=== PATIENT | female | born 1940 | race Caucasian/White ===

== ENCOUNTER → 2016-09-28 | Outpatient (CLI) | payer MEDICARE, BC ==
[~2016-09-28] MED LIST: ASPIRIN EC81 MG PO; CENTRUM SILVER1 EAC1 PO; CORDARONE,PACE200 MG PO; COUMADIN ** IA3 MG PO; COZAAR100 MG PO; DECADRON4 MG PO; FISH OIL 1,0001 EACH PO; LEVAQUIN750 MG PO; LOPRESSOR25 MG PO; NORCO 5-325 TA1 EACH PO; NORVASC5 MG PO; OCUVITE WITH L1 EACH PO; PEPCID COMPLET1 EACH PO; TUMS REGULAR ST1 TAB PO; TYLENOL PM EX-1 EACH PO; VERAPAMIL ER120 M1 PO; VITAMIN D1000 UNIT PO
== END | disposition disaster alternative care site (69) ==
LOC: GRAD 08:31
DX: C49.4 Malignant neoplasm of connective and soft tissue of abdomen (principal); D70.1 Agranulocytosis secondary to cancer chemotherapy; C78.7 Secondary malignant neoplasm of liver and intrahepatic bile duct; I95.1 Orthostatic hypotension; D64.81 Anemia due to antineoplastic chemotherapy; I70.90 Unspecified atherosclerosis; R91.8 Other nonspecific abnormal finding of lung field; Z90.5 Acquired absence of kidney
CPT/HCPCS: Q9967

== ENCOUNTER 2016-11-14 08:38 | Inpatient (IN) | payer MEDICARE, BC ==
[~2016-11-14] VITALS: Ht 160 cm; Wt 70.4 kg
--- NOTE | ~2016-11-14 | PUL ---
PATIENT'S NAME: RAFITA CHRISTENSEN [facility] AGE: 75 Y [address] ROOM: [place] [address] LOCATION: GPCU ADMIT DATE: 11/14/2016 Pulmonary DISCHARGE DATE: FAMILY PHYSICIAN: Sarah Beth Ray MD ATTENDING PHYSICIAN: Lisa LARSEN NAME OF PROCEDURE: Spriometry DATE OF PROCEDURE: November 14, 2016 TECH: CHARLIE Glasgow REASON FOR EXAM: Shortness of breath RESULTS: Spirometry demonstrates mild airflow obstruction with no significant change post bronchodilator. DYAN DELEON MD /[id number] dtt: 12/06/16 0824 , Dyan Deleon dtd: 11/17/16 0906
--- NOTE | ~2016-11-14 | CON ---
PATIENT'S NAME: RAFITA CHRISTENSEN [facility] AGE: 75 Y [address] ROOM: [facility] [place] [id number] LOCATION: GPCU ADMIT DATE: 11/14/2016 Consultation DISCHARGE DATE: FAMILY PHYSICIAN: Sarah Beth Ray MD ATTENDING PHYSICIAN: Lisa LARSEN DATE OF CONSULTATION: 11/14/2016 REFERRING PHYSICIAN: NEISHA DE LEÓN MD CARDIOLOGY CONSULT REASON FOR CARDIOLOGY CONSULT: Atrial fibrillation with rapid ventricular response. HISTORY OF PRESENT ILLNESS: This is a 75-year-old female, familiar to [facility]. She was last seen in clinic by Dr. De León on 08/18/2016 for history of paroxysmal atrial fibrillation and aortic insufficiency. She comes to the emergency department today after 2 different syncopal episode at Dr. Valladares' office. She is currently undergoing chemotherapy treatment for renal carcinoma. She denies any chest pain. 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 She had positive complaints of nausea and vomiting. As of this evaluation, the patient is currently in sinus rhythm after an amiodarone drip was started, and she "feels much better." PAST MEDICAL HISTORY: 1. History of coronary stenting in 2004. 2. History of breast cancer in 1984 with a mastectomy and reconstruction. 3. History of a total hysterectomy. 4. Tonsillectomy. 5. Left nephrectomy. 6. History of liver lesions. 7. Paroxysmal atrial fibrillation. 8. Hypertension. 9. Hypercholesterolemia. 10. Previous stenting to the RCA. 11. Diverticulitis. FAMILY HISTORY: The patient's mother had a history of heart disease, and her father had a history of stroke. SOCIAL HISTORY: PATIENT'S NAME: RAFITA CHRISTENSEN [facility] AGE: 75 Y [address] ROOM: [address] [address] LOCATION: GPCU ADMIT DATE: 11/14/2016 Consultation DISCHARGE DATE: FAMILY PHYSICIAN: Sarah Beth Ray MD ATTENDING PHYSICIAN: Lisa LARSEN The patient is a former cigarette smoker. She smoked 1 pack per day for a total of 10 years and quit smoking in 1986. She denies alcohol or illicit drug use. CURRENT MEDICATIONS: 1. Amiodarone IV drip per protocol. 2. Aspirin 81 mg p.o. daily. 3. Colace 100 mg p.o. twice daily. 4. Protonix 40 mg p.o. daily. MEDICATION ALLERGIES: 1. Sulfa causing rash and muscle pain. 2. Statins causing severe muscle aches. REVIEW OF SYSTEMS: Pertinent positive review of systems listed in the HPI. All other review of systems evaluated and negative. DIAGNOSTICS: CMS evaluation shows sodium of 141, potassium 4.1, BUN of 19, creatinine 1.0, glucose of 143, and a magnesium of 2.2. Cardiac enzyme evaluation shows a CPK of 17, CK-MB of 1.1, and troponin I of less than 0.04. PHYSICAL EXAMINATION: VITAL SIGNS: Temp 98.0, pulse 99, respirations 15, blood pressure 135/59, and O2 saturation 96% on room air. The patient weighs 70.8 kg. SKIN: [place], warm, and dry. EYES: Sclerae clear. No xanthelasmas. ENT: Oral mucosa is pink and moist. No jugular venous distention or carotid bruits. CHEST: Respirations are even and unlabored. LUNGS: Clear to auscultation. HEART: Regular rate and rhythm. Normal S1, S2. Does have the presence of a 2/6 diastolic murmur. ABDOMEN: Soft, nontender. MUSCULOSKELETAL: Gait is normal. EXTREMITIES: Peripheral pulses palpable. No clubbing, cyanosis, or edema. PSYCH: Alert and oriented. Mood and affect are appropriate. IMPRESSION AND PLAN: Per Dr. De León: 1. Atrial fibrillation with rapid ventricular response. She has a previous history of paroxysmal atrial fibrillation and is currently in sinus rhythm on her amiodarone drip. Plan will be to change her to the p.o. amiodarone in the a.m. PATIENT'S NAME: RAFITA CHRISTENSEN [facility] AGE: 75 Y [address] ROOM: [id number] [place], [place] [address] [facility] ADMIT DATE: 11/14/2016 Consultation DISCHARGE DATE: FAMILY PHYSICIAN: Sarah Beth Ray MD ATTENDING PHYSICIAN: Lisa LARSEN 2. No current long-term anticoagulation. She has discussed the risks and benefits of being off anticoagulation as well as being back on anticoagulation with Dr. De León. She was previously on long-term Coumadin but was stopped with the advisement of Dr. Valladares due to her chemotherapy regimen. We will await for Dr. Valladares' instructions for possibly restarting her Coumadin. Also discussed with the patient the possibility of a heparin drip, but her platelets are low at this time. We will continue to monitor closely. 3. History of aortic insufficiency. We will check an echocardiogram to fully evaluate ejection fraction as well as look for wall motion and valvular abnormalities. 4. Renal carcinoma. Currently undergoing chemotherapy with Dr. Valladares. We will continue to monitor, evaluate, and treat as appropriate. Thank you for allowing [facility] to interact in the care of this patient. Thank you for this consult. SASHA VELAZQUEZ APRN FOR MD MATTHIAS MERLOS/alexis /[id number] d: 11/14/16 2352 t: 12/08/16 1723, CONSULTATION REPORT
--- NOTE | ~2016-11-14 | DS ---
PATIENT'S NAME: RAFITA CHRISTENSEN [facility] AGE: 75 Y [address] ROOM: [address] [place], [place] [address] LOCATION: GPCU ADMIT DATE: 11/14/2016 Discharge Summary DISCHARGE DATE: 11/17/2016 FAMILY PHYSICIAN: Sarah Beth Ray MD ATTENDING PHYSICIAN: Lisa BOLES PRIMARY DIAGNOSES: 1. Paroxysmal atrial fibrillation with rapid ventricular response. 2. Anemia of chronic disease. 3. Thrombocytopenia. 4. Chronic kidney disease, stage 3. 5. Chronic diagnosis includes renal leiomyosarcoma. PRINCIPAL PROCEDURES: None was indicated in the patient. LABORATORY DATA: On admission, troponin less than 0.040. Lactic acid 1.9. WBC on admission was 7.2, prior to discharge was 12.0; H and H on admission was 10.0/32.6, prior to discharge was 9.0/29.2; platelet on admission was 57, prior to discharge was 34; creatinine on admission was 1.0, was stable throughout the hospital stay, prior to discharge was 1.1. Sodium as well was stable throughout the hospital stay, prior to discharge was 143; potassium was 4.1, prior to discharge was 4.0; bicarb was also stable throughout the hospital stay. Liver function tests were within normal limit throughout her hospital stay. Procalcitonin was 0.44. TSH was 4.21. Urine culture is pending. RADIOLOGY: Chest x-ray, patchy opacity in the right upper lung, which could reflect acute infiltrate and atelectasis, chronic changes of fibrosis and scarring also could contribute to observed appearance, apical pleural thickening and pleural parenchymal scarring at the right apex, elevation of the right hemidiaphragm, implanted vascular access catheter placed by left subclavian approach in place. Echocardiogram, ejection fraction 70%, left ventricle hyperdynamic, left atrium, mildly dilated left atrium, right atrium is mildly dilated, moderate aortic stenosis. HOSPITAL COURSE: For history of present illness, please take a look at the H and P, which was done by Dr. Boles. The patient was admitted to Progressive Care Unit, was managed for paroxysmal atrial fibrillation with rapid ventricular response, had a Cardiology consult for this. The patient was started on amiodarone drip by Cardiology; and by the next day of the hospital stay, amiodarone was discontinued, and the patient was switched to p.o. amiodarone after she flipped back into normal sinus rhythm. The patient was also followed up by oncologist for her left renal leiomyosarcoma. Her H and H were stable and throughout the hospital stay as well was relatively stable. Her amiodarone was titrated by the senior compensation analyst; and the 2nd night of her PATIENT'S NAME: RAFITA CHRISTENSEN [facility] AGE: 75 Y [address] ROOM: [address] [address] LOCATION: GPCU ADMIT DATE: 11/14/2016 Discharge Summary DISCHARGE DATE: 11/17/2016 FAMILY PHYSICIAN: Sarah Beth Ray MD ATTENDING PHYSICIAN: Lisa BOLES hospital stay, she temporarily flipped back into AFib, but for a brief period of time like for a few seconds, and she flipped right back into normal sinus rhythm. The big question was when to commence anticoagulation given the patient's thrombocytopenia; so, this was deferred to the oncologist by the by the senior compensation analyst as to when to give cardiac clearance for commencement of anticoagulation; however, the patient did recommend that whenever it is going to be started that she would want to be on Eliquis. On the day of discharge, it was observed that her white cell count had bumped up to 12,000; however, she was afebrile, partial sepsis workup, which was done, which included procalcitonin revealed 0.44, and UA which was done as well revealed leukocytes of 500 and wbc of full field, bacteria was negative. However, given the fact that the patient is immunosuppressed with a chemo as well as a cancer, I felt the patient should be empirically treated for urinary tract infection even though she was asymptomatic. Plan also was to follow up on the urine culture, which will ultimately confirm whether the patient has urinary tract infection or not; so, on the day of discharge, the patient's vital signs were stable and she was discharged home. DISCHARGE INSTRUCTIONS: Include she is to follow up with her regular family doctor in the next 1 week who is to follow up on the results of the urine culture and decide on whether the antibiotics prescribed was appropriate or not if it turns out to be positive. MEDICATIONS ON DISCHARGE: Includes: 1. Aspirin 81 mg p.o. q.h.s. 2. Amiodarone 400 mg p.o. 3 times daily #1 and then from November 18 then amiodarone 200 mg p.o. twice daily. 3. Vitamin D 1000 units q.h.s. 4. Centrum 1 tablet p.o. daily. 5. Ocuvite 1 tablet p.o. daily. 6. Colace [id number]. 7. Metoprolol 25 mg p.o. twice daily, new medication. 8. Fish oil 1 g p.o. daily. 9. Tylenol PM Extra Strength 1 tablet p.o. q.h.s. p.r.n. 10. [place] 1 tablet p.o. every 4 hours p.r.n. 11. Pepcid 1 tablet p.o. 4 times daily and then antibiotics. 12. The patient was sent home on include Augmentin 500 mg b.i.d., which was called into pharmacy to replace the initial Levaquin 750 mg, which was on prescription prior to discharge, and Levaquin was discontinued because of interaction with amiodarone. VAZQUEZ RIVERA MD PATIENT'S NAME: RAFITA CHRISTENSEN [facility] AGE: 75 Y [address] ROOM: [place] [address] LOCATION: [facility] ADMIT DATE: 11/14/2016 Discharge Summary DISCHARGE DATE: 11/17/2016 FAMILY PHYSICIAN: Sarah Beth Ray MD ATTENDING PHYSICIAN: Lisa BOLES /[id number] d: 11/18/168 t: 11/27/16 1610, DISCHARGE SUMMARY
--- NOTE | ~2016-11-14 | CON ---
PATIENT'S NAME: ELSIE CHRISTINE [facility] AGE: 75 Y [address] ROOM: [address] [place], [place] [address] LOCATION: GPCU ADMIT DATE: 11/14/2016 Consultation DISCHARGE DATE: FAMILY PHYSICIAN: Sarah Beth Ray MD ATTENDING PHYSICIAN: Lisa BOLES DATE OF CONSULTATION: 11/15/2016 REFERRING PHYSICIAN: NEISHA DE LEÓN MD REQUESTING PHYSICIAN: Dr. Doyle dictating a consult to Dr. Boles. HISTORY OF PRESENT ILLNESS: Elsie Christine is a 75-year-old woman with dyspnea associated with atrial fibrillation with a rapid ventricular response. 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 The patient is currently on day 13 of her 6th cycle of gemcitabine and docetaxel for her leiomyosarcoma. She was last seen at [facility] on day 8 (11/09/2016). The progress note from that visit is appended in the physician's report and will not be repeated. At that time, the patient was doing well. She lived in [place] with Mr. Christine. She could drive, shop, exercise in the turtle pool, and generally take care of herself. On day 8, the patient received docetaxel and gemcitabine. On day 10, the patient developed fatigue and orthostatic disequilibrium. She was already scheduled for hydration on day 11 and day 12 which was done at the [facility]. On day 13 of this cycle, she reported to [facility] for scheduled laboratory work. She walked into the office, but was quite fatigued and swooned. She was placed in a wheelchair and continued to swoon. Her vital signs were taken and she was transferred by ambulance to [facility]. The patient was evaluated by Dr. Beltran in the emergency room. The white count was 7200, the hemoglobin was 10, the MCV was 130, and the platelets were 57,000. The patient had 78 segs and 11 bands on the peripheral smear. The CMS was unremarkable except for an albumin of 3.1 G/dL. A one-view chest x- ray revealed a left subclavian implanted vascular access device as well as patchy opacity in the upper lobe of the right lung and pleural thickening at the apex of the right lung. The lactate was 1.9. The free T4 was 1.3. The INR was 1. CK-MB and troponin were within normal limits. The 12-lead EKG revealed atrial fibrillation with a rapid ventricular response of [address] Beltran administered 5 mg of diltiazem which was associated with a fall in PATIENT'S NAME: ELSIE CHRISTINE [facility] AGE: 75 Y [address] ROOM: [place] [address] [facility] ADMIT DATE: 11/14/2016 Consultation DISCHARGE DATE: FAMILY PHYSICIAN: Sarah Beth Ray MD ATTENDING PHYSICIAN: Lisa BOLES the heart rate from 170 to 130 and improvement in blood pressure. Dr. 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 The patient makes the point she has experienced some intermittent chest pressure substernally that "comes and goes." She may be nauseated with this, though it has not been associated with dyspnea. On one occasion, she vomited. The patient states she has had palpitations before and occasionally gets dizzy with this. Two weeks prior to her admission, she had another syncopal episode, but 2 units of packed red blood cells were administered and her symptoms improved significantly. She experienced a mild headache this morning and paresthesias to the wrist which are intermittent and resolved following her chemotherapy were noted. Ms. 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 This was first detected by serendipity when she reported to Dr. De León for evaluation of dyspnea on exertion in late 2015. Dr. De León obtained an imaging study which was suspicious for cancer on 04/10/2016. This was a CT with PE protocol. Vascular calcifications were present. There was a 7-mm noncalcified nodule in the left lung base, a 5-mm nodule in the anterior mid left lung, and a 4-mm nodule in the right lung base. There was a 4.4 cm left renal mass invading the left renal vein. The left renal vein was partially occluded. An ill-defined lesion was present within the right lobe of the liver measuring up to 1.2 cm. The patient was referred to Dr. Paul Thompson, who recommended and performed, on 04/28/2016, a left radical nephrectomy complicated secondary to renal vein extension. Dr. Thompson removed all visible tumor. The pathologists, after consultation with their colleagues at the [facility], concluded the patient had a 6.5 cm high-grade renal leiomyosarcoma. The renal vein margin was positive. Tumor infiltrated the renal sinus and perinephric soft tissue. No tumor was seen in the five lymph nodes surrounding that. The patient was seen in consultation by Dr. Valladares and Dr. Mili Sanchez at the [facility]. On 06/01/2016, the patient was placed on olaratumab and doxorubicin. On 07/13/2016, gemcitabine and docetaxel were substituted. On 08/17/2016, a CAT scan showed the pulmonary nodules were stable and the lesion in the right lobe of the liver was smaller so her docetaxel and gemcitabine were continued. The patient is currently scheduled for restaging CAT scans on 11/30/2016 and for revisit with Dr. Sanchez on 12/05/2016. The patient makes a point she has tolerated her therapy reasonably well except for fatigue. ACTIVE MEDICAL PROBLEMS CHRONIC AND DIAGNOSED: 1. Atherosclerotic heart disease leading to coronary stenting in 2004. 2. Paroxysmal atrial fibrillation. 3. Essential arterial hypertension. 4. Hypercholesterolemia. 5. Colonic diverticulosis complicated by diverticulitis. PATIENT'S NAME: ELSIE CHRISTINE [facility] AGE: 75 Y [address] ROOM: [address] [address] [facility] ADMIT DATE: 11/14/2016 Consultation DISCHARGE DATE: FAMILY PHYSICIAN: Sarah Beth Ray MD ATTENDING PHYSICIAN: Lisa BOLES ACUTE MEDICAL ILLNESSES (RESOLVED), PAST SURGERIES, INJURIES: 1. In 1984 - breast cancer treated with mastectomy and reconstruction. 2. Tonsillectomy. 3. Total abdominal hysterectomy. 4. Left nephrectomy. 5. Diverticulitis. MEDICATIONS: Upon admission: 1. Acetaminophen and diphenhydramine p.r.n. insomnia. 2. ASA 81 mg daily. 3. Cholecalciferol 1000 units p.o. at bedtime. 4. Famotidine 1 tablet p.o. q.i.d. 5. Hydrocodone and acetaminophen. 6. Multivitamins. 7. [place]-3 fatty acids. 8. Vitamin A, C, and E. ADVERSE REACTIONS TO MEDICATIONS, TRANSFUSIONS, ALLERGIES: 1. The patient develops myalgias from statins. 2. The patient has needed packed red blood cell transfusions in July and October of 2016. 3. Sulfa leads to rash and muscle pain. TOBACCO: One pack per day for 10 years, abstained since 1986. ALCOHOL: None. REVIEW OF SYMPTOMS: The patient experienced some myalgias with her docetaxel. PHYSICAL EXAMINATION: VITAL SIGNS: Pulse 84 and regular, blood pressure 160/65, respiratory rate 18, temperature 97.5, and SpO2 of 94% on room air. Height 63 inches, weight 70.8 kg (156 pounds). BMI 27.6 kg/M2. GENERAL: A well-developed, slightly overweight, 75-year-old, female in no acute distress. HEENT: Unremarkable. LYMPH NODES: None palpable. NECK: Without JVD. CHEST: Clear. CARDIOVASCULAR: Regular rhythm with a grade 3/6 systolic ejection murmur PATIENT'S NAME: ELSIE CHRISTINE [facility] AGE: 75 Y [address] ROOM: [place] [address] [facility] ADMIT DATE: 11/14/2016 Consultation DISCHARGE DATE: FAMILY PHYSICIAN: Sarah Beth Ray MD ATTENDING PHYSICIAN: Lisa BOLES radiating to the carotid arteries. BREASTS: Not examined. ABDOMEN: No masses, tenderness, or organomegaly. A well-healed vertical abdominal scar from the umbilicus to the symphysis pubis. CHEST WALL: Left implanted vascular access device in place. EXTREMITIES: Pulses 2+ in the upper extremities, 1 +in the lower extremities. NEUROLOGIC: Grossly intact. IMPRESSION: 1. Paroxysmal atrial fibrillation in a patient with atherosclerotic heart disease. Other than her atherosclerotic heart disease, her doxorubicin, fluid retention from docetaxel, and aortic stenosis (by physical exam) might have predisposed her to this episode. 2. There are no antidotes specific for the chemotherapy that need to be administered at this time. Following stabilization of her cardiac situation, the patient needs to undergo restaging for her high-grade leiomyosarcoma. RECOMMEND: Diagnostic: 1. Proceed with restaging CAT scans of the chest, abdomen, and pelvis on 11/30/2016 presuming she continues to respond to therapy for her atrial fibrillation. 2. Cardiac diagnostic studies per Cardiology. TREATMENT: 1. No antineoplastic therapy at this point. She has completed her 6th cycle of docetaxel and gemcitabine. 2. Other medications per Cardiology and the Hospitalist Service. PATIENT EDUCATION: 1. I made the point that her chemotherapy may have somewhat increased her predisposition to her atrial fibrillation, but was not leach. 2. Recommended she continue with her current plans to undergo restaging x- rays later this month and then see Dr. Sanchez and Dr. Valladares for their impression and recommendations following restaging. MD LILLIAN RODRIGUEZB/modl PATIENT'S NAME: ELSIE CHRISTINE [facility] AGE: 75 Y [address] ROOM: [place] [address] [facility] ADMIT DATE: 11/14/2016 Consultation DISCHARGE DATE: FAMILY PHYSICIAN: Sarah Beth Ray MD ATTENDING PHYSICIAN: Lisa BOLES /[id number] CC: MD Sarah Beth Huertas MD d: 11/15/16 1844 t: 11/18/16 1226, CONSULTATION REPORT
--- NOTE | ~2016-11-14 | ECHO ---
Transthoracic Echocardiography Report (TTE) Demographics Patient Name RAFITA CHRISTENSEN Date of Study 11/14/2016 Patient Number [id number] Visit Number [id number] Date of 1940 Room Number G6310 Gender Female Number Age 75 year(s) Referring Ramana Gonzalez Medical Records Director Jo Hairston, Physician RT,RVT,RDCS Physician Interpreting Caitlyn Lau Jumpbasting Armhole Baster Physician Supervising Ordering Ramana Gonzalez MD/MLP Physician Nurse Stress Show Horse Driver Conclusions Summary The estimated left ventricular ejection fraction is 70%. Left ventricle is hyperdynamic. The left atrium is mildly dilated by LA volume index measurement. Mild concentric left ventricular hypertrophy. The right atrium is mildly dilated. There is moderate aortic stenosis by the Continuity Equation. The peak velocity is 2.6 m/s, the mean gradient is 16 mmHg, and the valve area based on the continuity equation is 1.1 cm2, stroke volume index is 51 ml/m2. Procedure Type of Study TTE procedure:2D Echocardiogram, M-Mode, Doppler , Color Doppler. Procedure Date Date: 11/14/2016 Start: 03:03 PM Study Location: Inpatient Portable Technical Quality: Adequate visualization Indications:Arrhythmia. Additional Indications:Chemo patient. Appropriate Use Criteria: 9 Patient Status: Routine HR: 99 bpm BP: 135/59 mmHg M-Mode/2D Measurements LV Diastolic Dimension: 3.47 cm LV Systolic Dimension: 2.44 cm LV Septum Diastolic: 1.67 cm LV PW Diastolic: 1.33 cm AO Root Dimension: 2.6 cm Cardiac Output: 5.07 l/min AV Cusp Separation: 1 cm RV Diastolic Dimension: 2.78 cm LA volume: 50 ml MV EPSS: 0.7 cm LVOT: 2 cm RV Base: 4.4 cm LVOT VTI: 16.3 cm RV Mid: 3.7 cm LV Stroke volume: 51.18 ml TAPSE: 8.9 cm Doppler Measurements AV Peak Velocity: 2.61 m/s MV Peak E-Wave: 0.86 m/s AV Peak Gradient: 27.25 mmHg MV Peak A-Wave: 1 m/s AV Mean Gradient: 16 mmHg MV E/A Ratio: 0.87 LVOT Peak Velocity: 0.81 m/s MV P1/2t: 44 msec AV P1/2t: 227 msec TR Gradient:20.79 mmHg PV Peak Velocity: 1.28 m/s Estimated RAP:10 mmHg PV Peak Gradient: 6.55 mmHg Estimated RVSP: 31 mmHg Estimated PASP: 30.79 mmHg E' Septal Velocity: 0.07 m/s A' Septal Velocity: 0.07 m/s MV E/E' Ratio: 12.7 Findings Left Ventricle Mild concentric left ventricular hypertrophy. Right Ventricle Normal right ventricular size and function. Left Atrium The left atrium is mildly dilated by LA volume index measurement. Right Atrium The right atrium is mildly dilated. Mitral Valve Normal mitral valve structure and function. Aortic Valve There is moderate aortic stenosis by the Continuity Equation. The peak velocity is 2.6 m/s, the mean gradient is 16 mmHg, and the valve area based on the continuity equation is 1.1 cm2, stroke volume index is 51 ml/m2. There is mild aortic regurgitation by color Doppler. Tricuspid Valve Mild tricuspid regurgitation by color Doppler. The estimated pulmonary pressure (RVSP) is 32 mmHg. Pericardial Effusion No evidence of pericardial effusion. Miscellaneous Visualized portions of the aortic root and ascending aorta appear normal in size. Pleural Effusion No evidence of pleural effusion. Contractility Score LV regional wall motion:(0-Non visualized 1-Normal 2-Hypokinesis 3-Akinesis 4-Dyskinesis 5-Aneurysm) Signature dtt: NEISHA DE LEÓN dtd: 11/14/16 1503 Physician Self Edit
--- NOTE | ~2016-11-14 | ER ---
PATIENT'S NAME: RAFITA CHRISTENSEN [facility] AGE: 75 Y [address] ROOM: [place] [address] LOCATION: GPCU ADMIT DATE: 11/14/2016 ER/Outpatient Report DISCHARGE DATE: FAMILY PHYSICIAN: Sarah Beth Ray MD ATTENDING PHYSICIAN: Lisa BOLES CHIEF COMPLAINT: Weakness and fast heart rate. HISTORY OF PRESENT ILLNESS: The patient was at her oncologist's office today and was found to have a very fast heart rate and possibly low blood pressure, and was not feeling well. She was brought in by ambulance. The patient has a history of atrial fibrillation. It is unclear if it is constant or paroxysmal. She states that she has been feeling poorly with her chemotherapy. Today, she felt particularly bad. The exact time of onset is unclear. It seems as though may be there was a significant change today. She is not on any anticoagulation. 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 She has known spots in the liver and lung. She has had a partial mastectomy and she has also had a nephrectomy. PAST MEDICAL HISTORY: Documented in the record and reviewed by me. SOCIAL HISTORY: Documented in the record and reviewed by me. MEDICATIONS: Documented in the record and reviewed by me. ALLERGIES: DOCUMENTED IN THE RECORD AND REVIEWED BY ME. REVIEW OF SYSTEMS: All systems were reviewed and negative except as noted in the HPI. PHYSICAL EXAMINATION: VITAL SIGNS: Upon arrival, blood pressure 122/65, pulse is 158, respiratory rate is 18, temperature 97.8, and SpO2 is 98% on room air. Pain is 0/10. GENERAL: An age appropriate female, tired appearance. No obvious pain or distress. NEUROLOGIC: The patient is awake and alert. She moves all extremities to command. GCS is 15. HEENT: Normocephalic and atraumatic. Eyes are PERRL. Oropharynx is clear. NECK: Supple. Trachea is midline. PATIENT'S NAME: RAFITA CHRISTENSEN [facility] AGE: 75 Y [address] ROOM: [place] [address] LOCATION: GPCU ADMIT DATE: 11/14/2016 ER/Outpatient Report DISCHARGE DATE: FAMILY PHYSICIAN: Sarah Beth Ray MD ATTENDING PHYSICIAN: SUZIE,Dagmawe CHEST: Heart is tachycardic and irregular. No obvious murmurs. LUNGS: Clear to auscultation bilaterally with no rhonchi, wheezes, or rales. ABDOMEN: Soft, nontender, and nondistended. No rebound or guarding. SPINE: Back is normal to inspection and palpation. EXTREMITIES: Warm and well perfused. No erythema or swelling. No deformities. SKIN: Warm, dry, and intact. LABORATORY DATA AND IMAGING STUDIES: Labs and X-rays: Chest x-ray, unremarkable per my read. EKG reveals atrial fibrillation with RVR, rate of approximately 170 beats per minute. Prior EKG is normal sinus rhythm. EMS EKG consistent. Labs: CBC; white count 7.2, hemoglobin 10.0, and platelets of 57,000. INR is 1. Free T4 is 1.3. Lactate is 1.9. TSH is 4.21. CMS without electrolyte abnormality. Creatinine is 1.0. GFR is 54, consistent with prior studies. No significant LFT abnormalities. CK-MB and troponin are within appropriate limits. IMPRESSION: Atrial fibrillation with rapid ventricular response and hemodynamic instability. EMERGENCY DEPARTMENT COURSE: The patient was seen and evaluated as above. She was found to be in atrial fibrillation with rapid ventricular response. Initially blood pressures were within the normal range. They ranged widely with no significant change in clinical status otherwise. Several times blood pressure was in the mid 70s systolic. The patient was given a 5 mg diltiazem bolus in addition to 2 L of fluid. This helped stabilize her blood pressure significantly and brought her heart rate down some to the 130 range from the [address] Brady, repairer controller tester, the patient's primary repairer controller tester as well as Dr. Boles, hospitalist, both evaluated the patient in the emergency department. She was deemed appropriate for floor admission to PCU. She was given diltiazem bolus and amiodarone was ordered and will be initiated on the floor. She has no evidence of alternative infection. At this time, I do not feel that she is unstable enough to require cardioversion in the emergency department. Her blood pressure stabilized in the 110s systolic in the middle of the second liter. She remained otherwise asymptomatic while in the emergency department. She will be admitted without further issue to the PCU. SUSHIL BLEVINS MD PATIENT'S NAME: RAFITA CHRISTENSEN [facility] AGE: 75 Y [address] ROOM: [id number] [place] [id number] LOCATION: [facility] ADMIT DATE: 11/14/2016 ER/Outpatient Report DISCHARGE DATE: FAMILY PHYSICIAN: Sarah Beth Ray MD ATTENDING PHYSICIAN: Lisa BOLES /[id number] d: 11/14/[id number] t: 11/16/16 1002, OUTPATIENT REPORT
--- NOTE | ~2016-11-14 | HP ---
PATIENT'S NAME: RAFITA CHRISTENSEN [facility] AGE: 75 Y [address] ROOM: [place] [address] [facility] ADMIT DATE: 11/14/2016 History & Physical DISCHARGE DATE: FAMILY PHYSICIAN: Sarah Beth Ray MD ATTENDING PHYSICIAN: Lisa LARSEN DATE OF SERVICE: CHIEF COMPLAINT: Atrial fibrillation with RVR. HISTORY OF PRESENT ILLNESS: The patient is a 75-year-old female with past medical history of CAD status post PCI, paroxysmal atrial fibrillation, breast cancer, status post mastectomy and radiation, and recent history of leiomyosarcoma of the left kidney, stage 4, with mets to liver who presents here from her Heme-Onc office with atrial fibrillation with RVR. The patient reports that she was not feeling well today. She reports that her blood pressure was low when she took it at home. She was seen by her Heme-Onc doctor, Dr. Valladares. At the clinic, she was noted to have nausea, vomiting, labile blood pressure ranging systolic blood pressure from 130 to systolic blood pressure in the 70s and tachycardic. The patient also reports of one episode of nausea and vomiting, and episode of left-sided pressure-like chest pain which she rates at 6/10, nonradiating and lasts 2 to 3 minutes. She reports that chest pain improved when her blood pressure got better. The patient denies fever, chills, abdominal pain, diarrhea, shortness of breath, dizziness, change in vision, or diarrhea. Of note, the patient has a history of breast cancer status post radiation and has history of leiomyosarcoma of the left kidney, stage 4, with mets to the liver. The patient has had a left radical nephrectomy in April 2016 and was initially started on Adriamycin and olaratumab, however, she could not tolerate and was currently on Gemzar and Taxotere. PAST MEDICAL HISTORY: 1. Breast cancer. 2. Coronary artery disease status post PCI. 3. Paroxysmal atrial fibrillation. 4. Leiomyosarcoma of the left kidney. PAST SURGICAL HISTORY: 1. Hysterectomy. 2. Left radical nephrectomy. 3. Mastectomy. FAMILY HISTORY: PATIENT'S NAME: RAFITA CHRISTENSEN [facility] AGE: 75 Y [address] ROOM: [place] [address] LOCATION: GPCU ADMIT DATE: 11/14/2016 History & Physical DISCHARGE DATE: FAMILY PHYSICIAN: Sarah Beth Ray MD ATTENDING PHYSICIAN: Lisa LARSEN Mother has a history of atrial fibrillation. 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 ALLERGIES: SULFUR. MEDICATION: Please see MAR. REVIEW OF SYSTEMS: All systems have been reviewed and are negative except for what is mentioned in the HPI. PHYSICAL EXAMINATION: VITAL SIGNS: Afebrile. Blood pressure 116/58, saturating 97% on room air, and heart rate of 151. GENERAL: The patient is lying on bed comfortably in no acute distress. HEENT: Head; normocephalic and atraumatic. Eyes; extraocular muscle intact. Sclerae nonicteric. Nose; no nasal discharge. Ears; no ear discharge. NECK: Supple. CHEST: Clear to auscultation bilaterally. HEART: Irregularly irregular. Tachycardic. No murmurs, rubs, or gallops appreciated. ABDOMEN: Soft, nontender, and nondistended. Bowel sounds present. EXTREMITIES: No edema. MUSCULOSKELETAL: Range of motion intact. No obvious joint effusion. NEUROLOGIC: Alert and oriented x3. Motor and sensory grossly intact. SKIN: Warm to touch. No lesion seen. LABORATORY DATA: White blood cell count 7.2, platelets of 57,000, and hemoglobin of 10. TSH of 4.21, free T4 of 1.3. Troponin 0.040. Sodium 141, potassium 4.1, BUN 19, and creatinine 1. EKG shows atrial fibrillation with RVR. ASSESSMENT AND PLAN: The patient is a 75-year-old female with past medical history of breast cancer status post mastectomy, radiation, leiomyosarcoma of the left kidney on Gemzar and Taxotere, history of coronary artery disease and paroxysmal atrial fibrillation, who presents here from her oncologist's office with atrial fibrillation with rapid ventricular response, labile blood pressure, and dehydration. 1. Atrial fibrillation with rapid ventricular response. The patient initially was found to be in atrial fibrillation with rapid ventricular PATIENT'S NAME: RAFITA CHRISTENSEN [facility] AGE: 75 Y [address] ROOM: [place] [address] [facility] ADMIT DATE: 11/14/2016 History & Physical DISCHARGE DATE: FAMILY PHYSICIAN: Sarah Beth Ray MD ATTENDING PHYSICIAN: Lisa LARSEN response and the heart rates up to 170s. The patient also was noted to have labile blood pressure. The patient was started on low-dose Cardizem drip, however, patient did not tolerate blood pressure. We will start the patient on amiodarone drip. Also patient was given 0.25 mg of digoxin. We will acquire echocardiogram to further evaluate structural disease. The patient has elevated CHADS-VASc score. However, patient voiced that she does not want to be on a blood thinner today. A long discussion was made about risks and benefits of anticoagulation. The patient understands that the risk of stroke without anticoagulation including debilitating stroke. The patient reports that she understands the risk of not being on anticoagulation. Family was present during this discussion. Also Dr. Brady was present during this discussion. We will continue home medication of aspirin 81 mg. We will monitor patient in the PCU with telemonitor with amiodarone drip and if the patient continues to have uncontrolled rates, we will consider adding schedule digoxin. If the blood pressure is better with IV fluids, we will also consider a beta bobby. Cardiology on board. 1. Dehydration. The patient has received a 2 L bolus in the ED with improvement of blood pressure. We will start patient on 100 mL an hour of normal saline. 2. Chest pain. Initial troponin is negative. Etiology most likely secondary to atrial fibrillation with rapid ventricular response. Initial troponin x1 negative. Cardiology on board. The patient currently is chest pain- free. We will treat underlying etiology and we will acquire echocardiogram to further investigate wall-motion. 3. Thrombocytopenia, etiology secondary to chemotherapy. Platelets of 57,000 currently. No signs of bleeding. Hemoglobin of 10. We will monitor platelets with CBC daily. Discussed the case with Dr. Doyle our oncologist doctor. 4. 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 5. History of coronary artery disease, status post percutaneous coronary intervention, continue aspirin. 6. Subclinical hypothyroidism. TSH of 4.21 with normal free T4. To follow up as an outpatient with repeated TSH. I have personally reviewed the patient's medical record including but not limited to blood work and radiology report. Total time spent with patient is greater than 60 minutes, more than 50% of the time is spent in direct patient care and patient consultation. Case was reviewed with the patient, nursing staff, and family members. All question were answered to the patient's satisfaction. Case was reviewed with Cardiology, Dr. Brady and Heme-Onc with . PATIENT'S NAME: RAFITA CHRISTENSEN [facility] AGE: 75 Y [address] ROOM: [place] [address] LOCATION: [facility] ADMIT DATE: 11/14/2016 History & Physical DISCHARGE DATE: FAMILY PHYSICIAN: Sarah Beth Ray MD ATTENDING PHYSICIAN: Lisa LARSEN CODE STATUS: The patient is a full code on admission. SUZIE PEDRAZA MD AD/modl /[id number] D: [id number] T: 543 HISTORY & PHYSICAL
[~2016-11-14 08:38] MED LIST changes: -CENTRUM SILVER1 EAC1 PO; -CORDARONE,PACE200 MG PO; -DECADRON4 MG PO; -LEVAQUIN750 MG PO; -LOPRESSOR25 MG PO; -OCUVITE WITH L1 EACH PO; -PEPCID COMPLET1 EACH PO
[2016-11-14 09:02] LABS: HEMATOCRIT 32.6 % (33.0-46.0); MCH 31.6 pg (27.0-34.0); MCHC 30.7 gm/dL (32.0-36.5); MCV 103.2 fl (83.0-98.0); MPV 9.7 fl (9.4-12.4); RBC 3.16 M/uL (3.50-5.50); RDW-CV 18.3 % (11.9-14.6); WBC 7.2 K/uL (4.0-11.0)
[2016-11-14 09:03] LABS: PLATELET COUNT 57 K/uL (150-450)
[2016-11-14 09:14] LABS: INR - (THERAPEUTIC) 1.02 (0.92-1.07); PROTIME 10.7 SECONDS (9.8-11.4); PTT 31 SECONDS (25-32)
[2016-11-14 09:22] LABS: ALBUMIN 3.1 gm/dL (3.5-5.0); ALK PHOS 88 IU/L (33-138); ALT 57 IU/L (12-78); ANION GAP 13.1 (10.0-19.0); AST 25 IU/L (10-40); BLOOD UREA NITROGEN 19 mg/dL (6-24); CALCIUM 9.2 mg/dL (8.5-10.5); CHLORIDE 105 mMol/L (96-110); CO2 27 mMol/L (22-32); CPK 17 IU/L (21-215); ESTIMATED GFR (MDRD EQUATION) 54; MAGNESIUM 2.2 mg/dL (1.8-2.6); POTASSIUM 4.1 mMol/L (3.7-5.1); SODIUM 141 mMol/L (135-145); TOTAL BILIRUBIN 0.7 mg/dL (0.0-1.5); TOTAL PROTEIN 5.9 g/dL (6.0-8.4)
[2016-11-14 10:34] LABS: ABSOLUTE NEUTROPHIL CT (ANC) 6.6 K/uL (1.8-7.8); BANDED NEUTROPHIL # 0.8 K/uL (0.0-0.1); BANDED NEUTROPHILS % 11 %; LYMPHOCYTE # 0.4 K/uL (0.8-4.0); LYMPHOCYTE % 6 %; MONOCYTE # 0.1 K/uL (0.0-1.0); SEGMENTED NEUTROPHIL # 5.8 K/uL (1.8-7.8); SEGMENTED NEUTROPHIL % 78 %
--- NOTE | 2016-11-14 12:11 | NUR ---
PT is 75 y/o female admit for afib w rvr for hospitalist. Allergy to sulfa and statins. Red and yellow bracelets on. Limb alert on R)arm-mastectomy. Hx cardiac stent,afib,htn,hypercholest,CAD,diverticulitis,ulcerative colitis, renal and breast cancer. PT alert and oriented x3. CAme through ED this am. States she was nauseated earlier and vomited x1. Resides at home with her . Just had last chemo tx recently.
[2016-11-14] MEDS ORDERED: CENTRUM SILVER1 EAC1 PO (13:12)
[2016-11-14] MEDS ORDERED: PEPCID COMPLET1 EACH PO (13:12)
[2016-11-14] MEDS ORDERED: OCUVITE WITH L1 EACH PO (13:13)
[2016-11-14] MEDS ORDERED: DECADRON4 MG PO (13:14)
--- NOTE | 2016-11-14 16:23 | NUR ---
Significant Event: A/O. BPs 100s-130s RA. Converted to SR with amiodarone gtt. Denies pain - states she does have some chest "heaviness" with her rates up but states that the heaviness is not similar to the pain she had when her stent was placed. Port to L) chest with good blood return. Family at bedside. Echo completed this afternoon, results pending. Follow up: continue with plan of care.
[2016-11-15 02:56] LABS: ALBUMIN 2.7 gm/dL (3.5-5.0); ANION GAP 11.3 (10.0-19.0); CALCIUM 9.1 mg/dL (8.5-10.5); POTASSIUM 4.3 mMol/L (3.7-5.1); TOTAL PROTEIN 5.2 g/dL (6.0-8.4)
[2016-11-15 03:06] LABS: TOTAL BILIRUBIN 0.3 mg/dL (0.0-1.5)
[2016-11-15 03:08] LABS: HEMATOCRIT 26.2 % (33.0-46.0); HEMOGLOBIN 8.2 g/dL (10.0-15.0); MCH 32.7 pg (27.0-34.0); MCHC 31.3 gm/dL (32.0-36.5); MCV 104.4 fl (83.0-98.0); MPV 11.7 fl (9.4-12.4); RBC 2.51 M/uL (3.50-5.50); RDW-CV 18.4 % (11.9-14.6); WBC 5.9 K/uL (4.0-11.0)
[2016-11-15 03:19] LABS: PLATELET COUNT 41 K/uL (150-450)
--- NOTE | 2016-11-15 04:45 | NUR ---
Significant events: Pt A/Ox3. VSS. No complaints of pain or shortness of breath this shift. Up SBA. Amiodarone gtt continues at 0.5. Continues in sinus rhythm. L) chest port in place, good bood return. Slept well this shift.
[2016-11-15 05:43] LABS: ABSOLUTE NEUTROPHIL CT (ANC) 4.7 K/uL (1.8-7.8); BANDED NEUTROPHIL # 0.7 K/uL (0.0-0.1); BANDED NEUTROPHILS % 12 %; LYMPHOCYTE # 1.1 K/uL (0.8-4.0); LYMPHOCYTE % 18 %; MONOCYTE # 0.1 K/uL (0.0-1.0); SEGMENTED NEUTROPHIL % 68 %
--- NOTE | 2016-11-15 16:36 | NUR ---
A&O. HTN 140'S150'S. HR 70'S-80'S. RA. AFEBRILE. LS CLEAR. BS ACTIVE. VD PER BR. NO BM TODAY. AMIO GTT OFF AT 1230. PO AMIO. HGB DOWN 2 PTS. L CX PORT SL. FAMILY AT BEDSIDE, PLAN HOME TOMORROW
[2016-11-16 04:01] LABS: ANION GAP 11.3 (10.0-19.0); CALCIUM 9.4 mg/dL (8.5-10.5); CREATININE 1.1 mg/dL (0.5-1.1); POTASSIUM 4.3 mMol/L (3.7-5.1); TOTAL PROTEIN 5.7 g/dL (6.0-8.4)
[2016-11-16 04:08] LABS: TOTAL BILIRUBIN 0.6 mg/dL (0.0-1.5)
--- NOTE | 2016-11-16 04:35 | NUR ---
Significant events: Pt A/Ox3. VSS. No complaints of pain. Up SBA. On RA. Pt did flip into afib at 2315 and converted back to sinus at 2325. PO amiodarone started. L) chest port in place. Slept well this shift. Possible DC today.
[2016-11-16 05:09] LABS: HEMATOCRIT 29.9 % (33.0-46.0); HEMOGLOBIN 9.3 g/dL (10.0-15.0); MCH 32.4 pg (27.0-34.0); MCHC 31.1 gm/dL (32.0-36.5); MCV 104.2 fl (83.0-98.0); MPV 11.5 fl (9.4-12.4); RBC 2.87 M/uL (3.50-5.50); RDW-CV 18.4 % (11.9-14.6); WBC 9.1 K/uL (4.0-11.0)
[2016-11-16 05:12] LABS: PLATELET COUNT 33 K/uL (150-450)
[2016-11-16 05:45] LABS: BANDED NEUTROPHIL # 1.2 K/uL (0.0-0.1); BANDED NEUTROPHILS % 13 %; LYMPHOCYTE # 1.5 K/uL (0.8-4.0); LYMPHOCYTE % 16 %; MONOCYTE # 0.6 K/uL (0.0-1.0); SEGMENTED NEUTROPHIL # 4.8 K/uL (1.8-7.8); SEGMENTED NEUTROPHIL % 53 %
--- NOTE | 2016-11-16 15:00 | NUR ---
Introduced self and role of care management to patient and several friends. Patient lives in [place] with her spouse. Patient plans home when ready for discharge. Denies discharge needs at this time. Will follow.
--- NOTE | 2016-11-16 16:53 | NUR ---
Significant Event: PT A&O x3. VSS, on room air. PT had one episode of afib this morining last about 15 min, at bedside, medication changes. PT up ad ana m in room and hinojosa. Denies pain. IV patent. Tolerating cardiac diet. Voiding without difficulties. Possible dc to home tomorrow. Follow up:
--- NOTE | 2016-11-17 04:41 | NUR ---
Significant Event:A*O. VSS.RA.AD REYNALDO.UNEVENTFUL NIGHT OTHER THAN 8BEATS V-TACH, ASYMPTOMATIC. L CHEST PORT INTACT. Follow up: POSSIBLE DISMISSAL 11/17
[2016-11-17 06:01] LABS: ALBUMIN 2.8 gm/dL (3.5-5.0); CALCIUM 9.1 mg/dL (8.5-10.5); CREATININE 1.1 mg/dL (0.5-1.1); TOTAL PROTEIN 5.5 g/dL (6.0-8.4)
[2016-11-17 06:02] LABS: TOTAL BILIRUBIN 0.2 mg/dL (0.0-1.5)
[2016-11-17 06:09] LABS: HEMATOCRIT 29.2 % (33.0-46.0); MCHC 30.8 gm/dL (32.0-36.5); MCV 103.9 fl (83.0-98.0); MPV 12.3 fl (9.4-12.4); RBC 2.81 M/uL (3.50-5.50); RDW-CV 18.6 % (11.9-14.6)
[2016-11-17 06:12] LABS: PLATELET COUNT 34 K/uL (150-450)
[2016-11-17 07:01] LABS: ABSOLUTE NEUTROPHIL CT (ANC) 8.6 K/uL (1.8-7.8); BANDED NEUTROPHIL # 0.8 K/uL (0.0-0.1); BANDED NEUTROPHILS % 7 %; LYMPHOCYTE # 1.6 K/uL (0.8-4.0); LYMPHOCYTE % 13 %; MONOCYTE # 1.3 K/uL (0.0-1.0); SEGMENTED NEUTROPHIL # 7.8 K/uL (1.8-7.8); SEGMENTED NEUTROPHIL % 65 %
[2016-11-17 10:37] LABS: BILIRUBIN URINE NEGATIVE (NEGATIVE); BLOOD URINE 10 /UL (NEGATIVE); COLOR URINE YELLOW (YELLOW); GLUCOSE URINE NEGATIVE (NEGATIVE); KETONE URINE NEGATIVE (NEGATIVE); LEUKOCYTES URINE 500 /UL (NEGATIVE); NITRITE URINE NEGATIVE (NEGATIVE); PROTEIN URINE NEGATIVE (NEGATIVE); TURBIDITY URINE CLEAR (CLEAR); UROBILINOGEN URINE NORMAL (NORMAL)
[2016-11-17 10:47] LABS: EPITHELIAL URINE NEGATIVE #/HPF (NEGATIVE); RBC URINE RARE #/HPF (NEGATIVE); WBC URINE FULL FIELD #/HPF (NEGATIVE)
[2016-11-17 10:48] LABS: BACTERIA URINE NEGATIVE (NEGATIVE)
[2016-11-17] MEDS ORDERED: CORDARONE,PACE200 MG PO ×2 (11:45→11:46)
[2016-11-17] MEDS ORDERED: LOPRESSOR25 MG PO (11:50)
[2016-11-17] MEDS ORDERED: LEVAQUIN750 MG PO (11:53)
--- NOTE | 2016-12-02 11:37 | NUR ---
Post discharge follow up call made. Patient is doing well. Is aware of follow up appointments. Some medications have been adjusted since her dismissal at follow up appointments. No questions or concerns at this time.
== END 2016-11-17 12:58 | disposition disaster alternative care site (69) | DRG 309 ==
LOC: GMED 08:38 → GPCU 11:05
PROVIDERS: Emergency Medicine; Hospitalist; ADMIT Internal Medicine
DX: I48.0 Paroxysmal atrial fibrillation (principal); C64.9 Malignant neoplasm of unspecified kidney, except renal pelvis; C78.7 Secondary malignant neoplasm of liver and intrahepatic bile duct; D69.6 Thrombocytopenia, unspecified; N18.3 Chronic kidney disease, stage 3 (moderate); E86.0 Dehydration; I12.9 Hypertensive chronic kidney disease with stage 1 through stage 4 chronic kidney disease, or unspecified chronic kidney disease; D63.8 Anemia in other chronic diseases classified elsewhere; E03.9 Hypothyroidism, unspecified
CPT/HCPCS: J0282; J1160; J1642; J7030; J7040; J7060

== ENCOUNTER → 2016-11-14 | Outpatient (CLI) | payer MEDICARE, BC | END | disposition disaster alternative care site (69) | LOC: GAMB 08:23 | DX: I49.9 Cardiac arrhythmia, unspecified (principal); I48.91 Unspecified atrial fibrillation; C64.9 Malignant neoplasm of unspecified kidney, except renal pelvis; C50.919 Malignant neoplasm of unspecified site of unspecified female breast; R07.89 Other chest pain; R42 Dizziness and giddiness; Z79.891 Long term (current) use of opiate analgesic; Z79.82 Long term (current) use of aspirin; Z79.899 Other long term (current) drug therapy; Z79.52 Long term (current) use of systemic steroids; Z88.2 Allergy status to sulfonamides | CPT/HCPCS: A0425; A0427 ==

== ENCOUNTER → 2016-11-30 | Outpatient (CLI) | payer MEDICARE, BC ==
[~2016-11-30] MED LIST changes: +CENTRUM SILVER1 EAC1 PO; +CORDARONE,PACE200 MG PO; +DECADRON4 MG PO; +LEVAQUIN750 MG PO; +LOPRESSOR25 MG PO; +OCUVITE WITH L1 EACH PO; +PEPCID COMPLET1 EACH PO
== END | disposition disaster alternative care site (69) ==
LOC: GRAD 09:30
DX: C49.4 Malignant neoplasm of connective and soft tissue of abdomen (principal); T45.1X5A Adverse effect of antineoplastic and immunosuppressive drugs, initial encounter; D70.1 Agranulocytosis secondary to cancer chemotherapy; D64.81 Anemia due to antineoplastic chemotherapy; I95.1 Orthostatic hypotension; I48.0 Paroxysmal atrial fibrillation; R91.8 Other nonspecific abnormal finding of lung field; Z90.5 Acquired absence of kidney

== ENCOUNTER → 2017-01-11 | Outpatient (CLI) | payer MEDICARE, BC | END | disposition disaster alternative care site (69) | LOC: GRAD 07:39 | DX: C64.2 Malignant neoplasm of left kidney, except renal pelvis (principal); J84.10 Pulmonary fibrosis, unspecified; R91.8 Other nonspecific abnormal finding of lung field ==